=== PATIENT | male | born 1965 | race Caucasian/White ===

== ENCOUNTER 2017-01-18 22:56 | Observation (INO) | payer OTHER ==
[~2017-01-18] VITALS: Ht 177.8 cm; Wt 105.7 kg
[~2017-01-18 22:56] MED LIST: ASPI-482 PO; CETI10CA PO; CHOL5000 PO; ESOM20CA PO; FLUT9.9S NS; LEVO75TA5 PO; MELA1TAB11 PO; MONT10TA9 PO; NITR0.4T SL; OMEG1CAP32 PO; PRAS10TA9 PO; SIMV20TA PO
[2017-01-18] MEDS ORDERED: ONDANSETRON PF 4 MG/2 ML VIAL. IV PRN (23:15)
[2017-01-18] MEDS ORDERED: MORPHINE SULFATE 2 MG/ML DISP.SYRIN. IV PRN (23:15)
[2017-01-18] MEDS ORDERED: NITROGLYCERIN SUBLINGUAL 0.4 MG BOTTLE OF 25. SL PRN (23:15)
--- NOTE | 2017-01-18 23:19 | PHYS DOC ---
Adult General Chief Complaint Chief Complaint: chest pain HPI HPI 51-year-old male with a history of an RCA stent laced by his national sales consultant at a few years ago presents the emergency department today with chest pain and back pain. He describes the pain as a sharp moderate pain that radiates to the back. It is not migrating. He denies nausea or diaphoresis. He denies unilateral leg swelling or hemoptysis. He denies personal history of blood clotting disorder. He denies cough. He was watching the baseball game when his pain started. About an hour prior to arrival. He presents by EMS. Review of systems is negative for nausea vomiting or diaphoresis. Negative for fevers or chills. All other review of systems is negative unless otherwise noted in history of present illness. ED course: 51-year-old male presenting with chest pain and back pain. Patient denies the pain being a ripping tearing pain. It is not a migrating pain. Clinical presentation not consistent with aortic dissection. Palpable pulse in all extremities. Patient is not hypoxic or tachycardic. EKG reviewed by myself shows sinus rhythm with a regular rate. Mild T-wave abnormalities in the anterior septal leads. ST segments congruent. EKG compared to the previous we have for the patient which was in January 2012. more T-wave flattening in lead 1 and aVL then previous however this is about 5 years ago. Otherwise similar. Chest x-ray obtained along with blood work. The patient was admitted the hospital for chest pain rule out. Review of Systems Review of Systems SEE ABOVE. Current Medications Current Medications Allergies Allergies Allergies Coded Allergies Type Severity Reaction Last Updated Verified No Known Drug Allergies 10/21/14 No Physical Exam Physical Exam SEE ABOVE Constitutional: Well developed, well nourished, no acute distress, non-toxic appearance. [] HENT: Normocephalic, atraumatic, bilateral external ears normal, oropharynx moist, no oral exudates, nose normal. [] Eyes: PERRLA, EOMI, conjunctiva normal, no discharge. [] Neck: Normal range of motion, no tenderness, supple, no stridor. [] Cardiovascular:Heart rate regular rhythm, no murmur [] Lungs & Thorax: Bilateral breath sounds clear to auscultation [] Abdomen: Bowel sounds normal, soft, no tenderness, no masses, no pulsatile masses. [] Skin: Warm, dry, no erythema, no rash. [] Back: No tenderness, no CVA tenderness. [] Extremities: No tenderness, no cyanosis, no clubbing, ROM intact, no edema. [] Neurologic: Alert and oriented X 3, normal motor function, normal sensory function, no focal deficits noted. [] Psychologic: Affect normal, judgement normal, mood normal. [] Current Patient Data Vital Signs Vital Signs Date Time Temp Pulse Resp B/P (MAP) Pulse Ox O2 Delivery O2 Flow Rate FiO2 01/18/17 23:00 98.7 60 18 152/88 (109) 99 Room Air 98.7 Lab Values Laboratory Tests Test 01/18/17 23:00 White Blood Count 5.8 x10^3/uL (4.0-11.0) Red Blood Count 4.73 x10^6/uL (4.30-5.70) Hemoglobin 14.0 g/dL (13.0-17.5) Hematocrit 41.1 % (39.0-53.0) Mean Corpuscular Volume 87 fL (79-100) Mean Corpuscular Hemoglobin 30 pg (25-35) Mean Corpuscular Hemoglobin Concent 34 g/dL (31-37) Red Cell Distribution Width 13.4 % (11.5-14.5) Platelet Count 229 x10^3/uL (140-400) Neutrophils (%) (Auto) 42 % (31-73) Lymphocytes (%) (Auto) 43 % (24-48) Monocytes (%) (Auto) 11 % (0-9) H Eosinophils (%) (Auto) 4 % (0-3) H Basophils (%) (Auto) 1 % (0-3) Neutrophils # (Auto) 2.4 x10^3uL (1.8-7.7) Lymphocytes # (Auto) 2.5 x10^3/uL (1.0-4.8) Monocytes # (Auto) 0.6 x10^3/uL (0.0-1.1) Eosinophils # (Auto) 0.2 x10^3/uL (0.0-0.7) Basophils # (Auto) 0.1 x10^3/uL (0.0-0.2) Sodium Level 144 mmol/L (136-145) Potassium Level 3.8 mmol/L (3.5-5.1) Chloride Level 107 mmol/L (98-107) Carbon Dioxide Level 28 mmol/L (21-32) Anion Gap 9 (6-14) Blood Urea Nitrogen 16 mg/dL (8-26) Creatinine 1.0 mg/dL (0.7-1.3) Estimated GFR (Cockcroft-Gault) 78.8 Glucose Level 110 mg/dL (70-99) H Calcium Level 8.5 mg/dL (8.5-10.1) Total Bilirubin 0.2 mg/dL (0.2-1.0) Direct Bilirubin < 0.1 mg/dL (0.0-0.2) Aspartate Amino Transferase (AST) 21 U/L (15-37) Alanine Aminotransferase (ALT) 47 U/L (16-63) Alkaline Phosphatase 144 U/L (46-116) H Troponin I Quantitative < 0.017 ng/mL (0.000-0.055) FA-Fyx-D-Type Natriuretic Peptide 21 pg/mL (0-124) Total Protein 6.7 g/dL (6.4-8.2) Albumin 3.7 g/dL (3.4-5.0) Lipase 217 U/L (73-393) Laboratory Tests 01/18/17 23:00 Laboratory Tests 01/18/17 23:00 EKG EKG [] Radiology/Procedures Radiology/Procedures [] Course & Med Decision Making Course & Med Decision Making Pertinent Labs and Imaging studies reviewed. (See chart for details) [] Dragon Disclaimer Dragon Disclaimer This electronic medical record was generated, in whole or in part, using a voice recognition dictation system. Departure Departure Impression: Primary Impression: Chest pain Disposition: ADMITTED INPATIENT Admitting Physician: Reji Marc Condition: STABLE Referrals: RICHARD MARTINEZ DO (PCP) GITA HOANG MD Jan 18, 2017 23:19
[2017-01-18 23:21] LABS: BASO # 0.1 x10^3/uL (0.0-0.2); BASO % 1 % (0-3); EOS % 4 % (0-3); HEMATOCRIT 41.1 % (39.0-53.0); LYMPH # 2.5 x10^3/uL (1.0-4.8); LYMPH % 43 % (24-48); MEAN CORPUSCULAR HEMOGLOBIN 30 pg (25-35); MEAN CORPUSCULAR HGB CONC 34 g/dL (31-37); MEAN CORPUSCULAR VOLUME 87 fL (79-100); MONO % 11 % (0-9); NEUT % 42 % (31-73); PLATELET COUNT 229 x10^3/uL (140-400); RED BLOOD COUNT 4.73 x10^6/uL (4.30-5.70); RED CELL DISTRIBUTION WIDTH 13.4 % (11.5-14.5); WHITE BLOOD COUNT 5.8 x10^3/uL (4.0-11.0)
[2017-01-18 23:33] LABS: ANION GAP 9 (6-14); BLOOD UREA NITROGEN 16 mg/dL (8-26); CALCIUM 8.5 mg/dL (8.5-10.1); CARBON DIOXIDE 28 mmol/L (21-32); CHLORIDE 107 mmol/L (98-107); GFR 78.8; GLUCOSE 110 mg/dL (70-99); POTASSIUM 3.8 mmol/L (3.5-5.1); SODIUM 144 mmol/L (136-145)
[2017-01-18 23:39] LABS: ALBUMIN 3.7 g/dL (3.4-5.0); ALK PHOS 144 U/L (46-116); ALT (SGPT) 47 U/L (16-63); AST (SGOT) 21 U/L (15-37); DIRECT BILIRUBIN < 0.1 mg/dL (0.0-0.2); TOTAL BILIRUBIN 0.2 mg/dL (0.2-1.0); TOTAL PROTEIN 6.7 g/dL (6.4-8.2)
[2017-01-19] MEDS ORDERED: GABA-586 PO (00:29)
[2017-01-19] MEDS ORDERED: LEVO100T5 PO (00:29)
[2017-01-19] MEDS ORDERED: ACET325T9 PO (00:29)
[2017-01-19] MEDS ORDERED: PANT40TA3 PO (00:29)
[2017-01-19] MEDS ORDERED: BACL10TA PO (00:29)
[2017-01-19] MEDS ORDERED: CELE200C PO (00:29)
[2017-01-19] MEDS ORDERED: MELO15TA23 PO (00:29)
[2017-01-19] MEDS ORDERED: TRAM50TA PO (00:29)
[2017-01-19] MEDS ORDERED: GABA-585 PO (00:29)
[2017-01-19] MEDS ORDERED: AMLO5TAB2 PO (00:29)
[2017-01-19] MEDS ORDERED: PRAV20TA2 PO (00:29)
[2017-01-19] MEDS ORDERED: DULO60CA6 PO (00:29)
[2017-01-19] MEDS ORDERED: DOCU100C28 PO (00:29)
[2017-01-19] MEDS ORDERED: PNEUMOCOCCAL VAX SCREEN BY RX. MC ONE (01:15)
[2017-01-19] MEDS ORDERED: INFLUENZA VAX SCREEN BY RX. MC ONE (01:15)
[2017-01-19 01:37] VITALS: BP 134/80
[2017-01-19 03:00] VITALS: BP 114/63
[2017-01-19 07:00] VITALS: BP 125/78
[2017-01-19] MEDS ORDERED: FLU VACC QS2017-18 (36MOS+)/PF 0.5 ML SYRINGE. VAX IM ONE (09:00)
[2017-01-19] MEDS ORDERED: PNEUMOC CONJ VACC 23-VALENT 0.5 ML VIAL. VAX IM ONE (09:00)
--- NOTE | 2017-01-19 10:34 | CONS ---
DATE OF CONSULTATION: 01/19/2017 REASON FOR CONSULTATION: Chest pain. HISTORY OF PRESENT ILLNESS: The patient is a pleasant 51-year-old male who has prior medical history as noted below, who presents to the hospital in the setting of some vague back pain. He has reported that he has some shoulder pain and in the setting also had some minimally elevated blood pressure of about 160 and has experienced some left first and second digit numbness, and this prompted ER evaluation. In the ER, he was not in any acute distress. His initial cardiac enzymes are negative. PAST MEDICAL HISTORY: 1. Coronary artery disease, status post PCI to the RCA. 2. Hypertension. 3. Dyslipidemia. SOCIAL HISTORY: The patient denies any alcohol, tobacco or illicit drug use. He is retired . FAMILY HISTORY: Noncontributory. REVIEW OF SYSTEMS: Negative for 10 out of 14 systems reviewed, also otherwise mentioned above in HPI. ALLERGIES: See medical record. CURRENT CARDIOVASCULAR MEDICATIONS: See medical record. PHYSICAL EXAMINATION: VITAL SIGNS: Stable. GENERAL: Alert and oriented, in no acute distress. HEAD AND NECK: Unremarkable. CARDIAC: Regular rate and rhythm without murmurs, rubs or gallops. LUNGS: Clear to auscultation bilaterally. ABDOMEN: Soft, nontender, nondistended. EXTREMITIES: Without any clubbing, cyanosis or edema. NEUROLOGIC: No focal deficits. PSYCHIATRIC: Normal mood and affect. IMPRESSION: 1. Noncardiac chest pain. 2. Coronary artery disease. 3. Hypertension. 4. Dyslipidemia. RECOMMENDATIONS: At this present time, the patient is low risk for any acute coronary issues with negative cardiac enzymes, noncardiac symptoms and denies any EKG. Okay with discharge from a cardiovascular standpoint, with close followup with outpatient machine packaging technician. Of note, the patient also had a negative stress test approximately 1 year ago. Thank you for this consultation. FABIOLA HUNTLEY MD DR: AMELIE/arleth JOB#: [id number] / [id number]
--- NOTE | 2017-01-19 10:35 | RAD ---
Portable chest, 01/18/2017: History: Chest pain The heart size and pulmonary vascularity are normal. The lungs are clear. There is no evidence of pleural fluid. IMPRESSION: No acute cardiopulmonary abnormality is detected.
[2017-01-19 10:51] VITALS: BP 125/85
--- NOTE | 2017-01-19 12:05 | SSS ---
ADMIT DATE: 01/19/2017 CHIEF COMPLAINT: Shoulder pain. HISTORY OF PRESENT ILLNESS: The patient is a 51-year-old gentleman with past medical history of coronary artery disease status post stent placement, who presented to the Emergency Room with several aches and pains. He relates that he had some left shoulder blade pain as well as left arm pain and numbness in his left pinky. Because of his history of coronary artery disease and knowing that symptoms sometimes are not typical, he decided to come to the Emergency Room to get this checked out. He denies any shortness of breath, any nausea, dizziness or diaphoresis. PAST MEDICAL HISTORY: Coronary artery disease status post stent to right coronary artery, hypertension, hyperlipidemia, fibromyalgia. FAMILY HISTORY: No heart disease known to him. SOCIAL HISTORY: No toxic habits. He is a retired . ALLERGIES: No known allergies. MEDICATIONS: MAR reconciled with home meds. REVIEW OF SYSTEMS: Positive as per HPI. Symptoms actually have almost resolved spontaneously. Rest of organ system review is positive only for chronic fibromyalgia symptoms. PHYSICAL EXAMINATION: VITAL SIGNS: From today, show a blood pressure of 125/85, heart rate of 60, respiratory rate at 18. He is afebrile. GENERAL: This is a 51-year-old obese gentleman, alert and oriented, in no acute distress. HEENT: Shows no scleral icterus. NECK: Supple, without any JVD. LUNGS: Clear to auscultation bilaterally. HEART: Regular rate and rhythm without any murmurs. ABDOMEN: Positive bowel sounds, soft, nontender. EXTREMITIES: Show no edema. LABORATORY DATA: CBC from today with a WBC of 5.8, hemoglobin 14, platelets 229. Chemistries: BUN and creatinine of 16 and 1, normal electrolytes. Troponins negative x 2. IMAGING: Chest x-ray obtained in the Emergency Room showed no acute cardiopulmonary abnormality. ASSESSMENT AND PLAN: The patient is a 51-year-old gentleman with coronary artery disease, who presents with atypical symptoms. He has been ruled out for acute coronary syndrome by serial enzymes and EKGs. Case was discussed with Dr. Mcguire. The patient had a recent stress test, which was actually negative. No further workup is indicated. The patient therefore will be returned to home on his usual medications. DISCHARGE DIAGNOSIS: Shoulder pain, musculoskeletal. DISCHARGE DISPOSITION: To home. DISCHARGE CONDITION: Improved. DISCHARGE MEDICATIONS: Please refer to MAR. DISCHARGE INSTRUCTIONS: The patient will follow up with PCP in 1-2 weeks and Cardiology as previously arranged. LULY DIAZ MD DR: UR/nts JOB#: [id number] / [id number] RICHARD Ruth
--- NOTE | 2017-01-19 12:26 | EKG ---
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
== END 2017-01-19 13:20 | disposition home or self-care (01) ==
LOC: ER 22:56 → 5 NORTH 23:11
PROVIDERS: ADMIT Internal Medicine; ATTEND Internal Medicine
DX: R07.9 Chest pain, unspecified (principal); M25.512 Pain in left shoulder; M79.602 Pain in left arm; R20.0 Anesthesia of skin; I25.10 Atherosclerotic heart disease of native coronary artery without angina pectoris; M54.9 Dorsalgia, unspecified; I10 Essential (primary) hypertension; E78.5 Hyperlipidemia, unspecified; Z98.61 Coronary angioplasty status; Z23 Encounter for immunization
CPT/HCPCS: 36415; 71010; 80048; 80076; 83690; 83880; 84484; 85025; 90471; 90472; 90686; 90732; 93005; 99285; G0378; G0379